=== PATIENT | male | born 1950 | race Caucasian/White ===

== ENCOUNTER → 2021-03-23 07:34 | Outpatient (CLI) | payer MEDICARE, OTHER, SELFPAY ==
--- NOTE | 2021-03-23 07:38 | CDU_ITS ---
Reason For Study: Bruit Rt. Velocities/BP Lt. Velocities/BP Prox CCA 82.6/10.8 cm/sec. Prox CCA 83.9/9 cm/sec. Mid CCA 79.9/9.5 cm/sec. Mid CCA 71.6/12.6 cm/sec. Dist CCA 57.8/13.4 cm/sec. Dist CCA 59.3/11.4 cm/sec. Prox ICA 89.1/23.9 cm/sec. Prox ICA 47/12.6 cm/sec. Mid ICA 68.2/17.3 cm/sec. Mid ICA 61.8/18.8 cm/sec. Dist ICA 82.4/20.2 cm/sec. Dist ICA 56.8/15.1 cm/sec. Rt. ICA/CCA = 1.12. Lt. ICA/CCA = 0.86. Prox ECA 99.5/10.8 cm/sec. Prox ECA 83.9/7.7 cm/sec. Rt. Vert. 47.2/10.5 cm/sec. Lt. Vert. 42.1/11.4 cm/sec. Right Extracranial There is intimal thickening but no significant atherosclerotic plaque noted in the right common carotid artery. There is heterogeneous, irregular atherosclerotic plaque noted in the right internal carotid artery. There is intimal thickening but no significant atherosclerotic plaque noted in the right external carotid artery. Antegrade flow is noted in the right vertebral artery. Left Extracranial There is intimal thickening but no significant atherosclerotic plaque noted in the left common carotid artery. There is homogeneous, smooth atherosclerotic plaque noted in the left internal carotid artery. There is intimal thickening but no significant atherosclerotic plaque noted in the left external carotid artery. Antegrade flow is noted in the left vertebral artery. Procedure Carotid Duplex 34650. This is a Carotid Duplex examination using B-mode, color flow and specral Doppler. Exam performed in department. VL/Carotid Duplex Ultrasound Interpretation Summary Mild irregular plaque at the proximal right internal carotid artery with less t jerez 50% stenosis. Less than 50% stenosis right external carotid artery Mild irregular plaque in the proximal left internal carotid artery with less th an 50% stenosis Less than 50% stenosis left external carotid artery Patent antegrade vertebral arteries bilaterally Ordering Physician: Juwan Diaz Referring Physician: Satnam Almanza Performed By: Iza Ortiz RVT
--- NOTE | 2021-03-23 07:38 | ECHOCS_ITS ---
Reason For Study: MURMUR Procedure This was a 2D Doppler, Color Flow transthoracic echocardiogram. The study was technically difficult. Exam performed in department. Left Ventricle Normal LV size. Left ventricular systolic function is normal. The estimated ejection fraction is 55 %. No regional wall motion abnormalities noted. Right Ventricle Normal RV size. Normal systolic function. Atria Normal left atrium. Normal right atrium. Mitral Valve Mild focal mitral valve calcification, bileaflet. Mild (1+) eccentric mitral valve insufficiency. Tricuspid Valve Normal tricuspid valve. Mild (1+) tricuspid valve insufficiency. Pulmonary artery systolic pressure is 36 mmHg. Aortic Valve Trisinus/trileaflet aortic valve. Mild focal aortic valve calcification. Peak aortic valve gradient 36 mmHg. Mean aortic valve gradient 22 mmHg. Mild aortic stenosis. Mild (1+) aortic valve insufficiency. Pulmonic Valve Normal pulmonic valve. Great Vessels Normal aortic root. The pulmonary artery is normal size. Normal inferior vena cava. Pericardium/Pleural No pericardial effusion. Medication 22 gauge I.V. with prn adaptor inserted into right arm. Diluted definity 3ml given slow IV push to enhance endocardial definition. MMode/2D Measurements & Calculations LVIDd: 5.3 cm IVSd: 1.1 cm LVOT diam: 2.0 cm LVIDs: 3.4 cm LVPWd: 1.1 cm RVDd: 3.6 cm FS: 36.8 % LVOT area: 3.2 cm2 Ao root diam: 3.9 cm LAV(MOD-bp): 51.5 ml LVAd ap4: 39.7 cm2 LAV(MOD-bp) Indexed: 22.4 ml/m2 LVLd ap4: 9.2 cm LAV(MOD-sp2): 52.6 ml EDV(MOD-sp4): 139.5 ml LAV(MOD-sp4): 49.3 ml EDV(sp4-el): 145.1 ml LVAs ap4: 19.8 cm2 LVLs ap4: 7.3 cm ESV(MOD-sp4): 44.2 ml ESV(sp4-el): 45.9 ml EF(MOD-sp4): 68.3 % EF(sp4-el): 68.4 % SV(MOD-sp4): 95.3 ml SV(sp4-el): 99.2 ml LA A4 area: 18.3 cm2 LA dimension(2D): 4.2 cm RA A4 area: 15.4 cm2 Time Measurements MV dec time: 0.41 sec Doppler Measurements & Calculations MV E max samm: 73.7 cm/sec Lat Peak E' Samm: 7.9 cm/sec Med Peak E' Samm: 5.8 cm/sec MV A max samm: 132.9 cm/sec E/E' lat: 9.3 E/E' med: 12.7 MV E/A: 0.55 Ao V2 max: 301.5 cm/sec LV V1 max: 120.9 cm/sec SV(LVOT): 99.4 ml Ao max P.4 mmHg LV V1 max P.8 mmHg Ao V2 mean: 225.0 cm/sec LV V1 mean P.0 mmHg Ao mean P.8 mmHg LV V1 mean: 79.1 cm/sec Ao V2 VTI: 74.0 cm LV V1 VTI: 31.2 cm ARLEY(I,D): 1.3 cm2 ARLEY(V,D): 1.3 cm2 PA V2 max: 92.2 cm/sec TR max samm: 286.1 cm/sec TR max P.7 mmHg ECHO/Echo Complete W/ Contrast Interpretation Summary Normal LV size. Left ventricular systolic function is normal. The estimated ejection fraction is 55 %. Mild focal aortic valve calcification. Mild aortic stenosis. Mild (1+) aortic valve insufficiency. Contrast injection was performed. Ordering Physician: Juwan Diaz Referring Physician: ANIBAL AMBROSE Performed By: Vee Meek RDCS
== END ==
PROVIDERS: PCP Family Medicine; Referring Provider Internal Medicine Cardiovascular Disease; Visit Provider Internal Medicine Cardiovascular Disease
DX: R42 Dizziness and giddiness (principal); R01.1 Cardiac murmur, unspecified
CPT/HCPCS: 93306; 93880; Q9957; A4216; C8929; J3490

== ENCOUNTER 2021-07-27 07:48 | Day surgery (SDC) | payer MEDICARE, OTHER, SELFPAY ==
--- NOTE | 2021-07-25 09:08 | EKG12_ITS ---
Test Reason : ROUTINE Blood Pressure : / mmHG Vent. Rate : 089 BPM Atrial Rate : 089 BPM P-R Int : 170 ms QRS Dur : 114 ms QT Int : 370 ms P-R-T Axes : 052 -85 037 degrees QTc Int : 450 ms Normal sinus rhythm Right bundle branch block Left anterior fascicular block Bifascicular block Abnormal ECG Confirmed by MEREDITH WHITE, MATHEUS ([id number]), medical editor KWAKU STOLL ([id number]) on 07/26/2021 1:02:18 PM Referred By: SANDRO Confirmed By:MATHEUS HARPER MD
[2021-07-27] VITALS (10 sets, daily range): BP systolic 119–167; BP diastolic 61–100; PULSE 65–90; RESP 16–18; TEMP 36.2–36.8; O2SAT 92–96; BMI 34.4
[2021-07-27] MEDS: Lactated Ringers 1,000 ML 30 ML IV (08:55)
[2021-07-27 09:25] LABS: Anion Gap 7 (5-15); BUN 14 mg/dL (7-18); BUN/Creat Ratio 24.9 RATIO (10-20); Calcium,Total 8.4 mg/dL (8.5-10.1); Chloride 103 mmol/L (98-107); Creatinine, Serum 0.56 mg/dL (0.70-1.30); EST Glomerular Filtration Rate 153 mL/min (>60); Est Glom Filt Rate - Afr Amer 185 mL/min (>60); Estimated Creatinine Clearance 74.25 ml/min; Glucose 105 mg/dL (74-106); Potassium 4.1 mmol/L (3.5-5.1); Sodium Level 136 mmol/L (136-145)
[2021-07-27] MEDS: Cefazolin 2 GM in 0.9% Normal Saline 100 ML IV (09:54)
--- NOTE | 2021-07-27 10:10 | PROS_PTH ---
PATIENT: JAMISON MUNGUIA [place] [facility] [place][id number] AGE/SX: 71/M ROOM: RE07/27/[address]: Dr. Randy Harrison MD : [id number] BED: DIS: 07/28/2021 SPEC #: [id number] RECD: 07/27/21 13:19 STATUS: NOEMI GONZALEZ #: [id number] RONAL: 07/27/21 10:[address]: Randy Harrison DEPT: SURGICAL PATHOLOGY RECD BY: Anne-Marie Kemp ENTERED: 07/28/21 07:45 SP TYPE: TURP OTHR DR: Dr. Satnam Almanza, DO Tissues: Prostate, NOS Procedures: Surgery Specimen Level IV HEADER OPERATION: Cysto, TUR prostate, Olymp[employer] PRE-OP DIAGNOSIS: BPH with obstruction TISSUE SUBMITTED: Prostate MICROSCOPIC DIAGNOSIS Prostate tissue, TUR: Benign prostatic hyperplasia, glandular and stromal type. Focal moderate chronic inflammation. SJ:ángel 07/29/2021 MICROSCOPIC DESCRIPTION Slides are reviewed. GROSS DESCRIPTION Received is one container labeled with the patient's name and designated prostate tissue. The specimen consists of multiple irregular fragments of pink-padron, rubbery, soft tissue that in aggregate weigh 13.5 gm and measure in aggregate 5 x 4.5 x 2 cm. Varnish Maker tissue is submitted in ten cassettes. / RAE:ángel 07/28/2021 TC:5 CPT: 00616
[2021-07-27 10:20] LABS: Hematocrit 46.6 % (40-54); Hemoglobin 15.8 g/dL (13.0-16.5); Mean Corp Hgb Conc 33.9 g/dL (32-36); Mean Corpuscular Hgb 31.6 pg (27.0-32.0); Mean Corpuscular Volume 93.2 fL (80-94); Mean Platelet Vol. 12.4 fl (6.2-12.0); POSITIVE COUNT YES; Platelet Count 96 K/mm3 (150-450); RBC Distribution Width CV 12.9 % (11.6-14.6); RBC Distribution Width SD 44.1 fl (35.1-43.9); White Blood Count 7.9 K/mm3 (4.4-11.0)
--- NOTE | 2021-07-27 10:51 | PCM.HP.STD ---
HPI - General HPI Narrative JAMISON MUNGUIA, is a 71 M who presents for BPH with obstruction presents for a TURP [facility] Medical History (Updated 07/20/21 @ 11:17 by Stormy Patel) Anxiety Arthritis Back pain Bladder disease BPH (benign prostatic hyperplasia) Cardiac murmur Cardiology follow-up encounter COVID-19 virus detected (04/09/21) Difficulty swallowing Gastric reflux History of echocardiogram History of edema History of pain when walking Hypertension Non-smoker Nonrheumatic aortic (valve) stenosis Parkinson disease Prostate disease Right bundle branch block (RBBB) Shortness of breath on exertion TIA (transient ischemic attack) Home Medications carbidopa 25 mg-levodopa 100 mg tablet 2 tab PO TID tab 03/09/21 [History Last Taken 07/27/21] Muktabata 2 tab PO/SL QHS 07/20/21 [History Last Taken Unknown] Protandin 1 tab PO/SL DAILY 07/20/21 [History Last Taken Unknown] magnesium 250 mg PO DAILY 07/20/21 [History Last Taken Unknown] ascorbic acid (vitamin C) [Vitamin C] 500 mg PO DAILY 07/21/21 [History Last Taken Unknown] cholecalciferol (vitamin D3) [Vitamin D3] 50 mcg PO DAILY 07/21/21 [History Last Taken Unknown] vitamin K2 100 mcg PO DAILY 07/21/21 [History Last Taken Unknown] ciprofloxacin HCl [Cipro] 500 mg PO BID #6 tab 07/27/21 [Rx Last Taken Unknown] Allergy/AdvReac Type Severity Reaction Status Date / Time No Known Allergies Allergy Unverified 07/27/21 08:31 Family History Other CAD (coronary artery disease) Surgical History (Updated 07/20/21 @ 11:17 by Stormy Patel) History of cataract surgery History of herniorrhaphy Hx of colonoscopy Social History Smoking Status: Never smoker Vital Signs Vital Signs Vital Signs: 07/27/21 08:33 Temperature 98.3 F Temperature Source Temporal Pulse Rate 71 Respiratory Rate 16 Respiratory Pattern Normal Blood Pressure 119/61 Blood Pressure Mean 80 Blood Pressure Source Monitor Blood Pressure Position Semi-Fowlers Blood Pressure Location Left Arm Pulse Ox 95 Oxygen Delivery Method Room Air Weight Weight: 112 kg Body Mass Index (BMI) 34.4 Results Lab / Micro Data Result Diagrams: 07/27/21 10:05 07/27/21 08:45 Labs: Laboratory Results - last 24 hr 07/27/21 08:45: WBC Cancelled, Corrected WBC Cancelled, RBC Cancelled, Hgb Cancelled, Hct Cancelled, MCV Cancelled, MCH Cancelled, MCHC Cancelled, RDW Std Deviation Cancelled, RDW Coeff of Maribel Cancelled, Plt Count Cancelled, MPV Cancelled, Diff Path Review Cancelled 07/27/21 08:45: Sodium 136, Potassium 4.1, Chloride 103, Carbon Dioxide 26.0, Anion Gap 7, BUN 14, Creatinine 0.56 L, Estim Creat Clear Calc 74.25, Est GFR (MDRD) Af Amer 185, Est GFR (MDRD) Non-Af 153, BUN/Creatinine Ratio 24.9 H, Glucose 105, Calcium 8.4 L 07/27/21 10:05: WBC 7.9, RBC 5.00, Hgb 15.8, Hct 46.6, MCV 93.2, MCH 31.6, MCHC 33.9, RDW Std Deviation 44.1 H, RDW Coeff of Maribel 12.9, Plt Count 96 L, MPV 12.4 H
--- NOTE | 2021-07-27 10:51 | PCM.DC ---
Discharge Instructions Diet Discharge Diet: Light diet - advance as tolerated and Soft diet Activity Discharge Activity: Return to Normal Activity and May Not Drive (while taking narcotic pain medications.) Dressing / Incision Call your doctor if you observe: Fever of 101 or Higher Follow Up Care Please Follow Up With: Randy Harrison MD When: Call [phone] for an appointment Test Results: Test results from this visit will be discussed in further detail at your follow-up appointment, if applicable. Discharge Plan Admission Primary Reason for Your Visit: TURP Attending Provider: Randy Harrison Primary Care Provider: Satnam Almanza Discharge Orders/Prescriptions Prescriptions: New ciprofloxacin HCl [Cipro] 500 mg tablet 500 mg PO BID Qty: 6 RF: 0 Continued carbidopa-levodopa 25-100 mg tablet 2 tab PO TID RF: 0 magnesium 250 mg Tablet 250 mg PO DAILY RF: 0 Muktabata 2 tab PO/SL QHS RF: 0 Protandin 1 tab PO/SL DAILY RF: 0 ascorbic acid (vitamin C) [Vitamin C] 500 mg Tablet 500 mg PO DAILY RF: 0 cholecalciferol (vitamin D3) [Vitamin D3] 50 mcg (2,000 unit) Capsule 50 mcg PO DAILY RF: 0 vitamin K2 100 mcg Capsule 100 mcg PO DAILY RF: 0 Discontinued tamsulosin 0.4 mg capsule 0.4 mg PO DAILY RF: 0 aspirin 500 mg tablet 500 mg PO DAILY PRN (Reason: Pain) RF: 0 finasteride 5 mg Tablet 5 mg PO DAILY RF: 0 Referrals / Follow Up: Randy Harrison MD [STAFF PHYSICIAN] - Satnam Almanza DO [Primary Care Provider] - Disposition Disposition (needs filled in before D/C Order can be placed): Home, Self Care
--- NOTE | 2021-07-27 10:52 | PCM.OPRPT ---
Report of Operation Date of Procedure: 07/27/21 Pre-Operative Diagnosis: BPH with obstruction Post-Operative Diagnosis: Same Surgery/Procedure Performed:: Transurethral resection of the prostate Description of Surgical Findings:: In the preoperative setting I discussed with the patient how the surgery would be done with expect afterwards. We discussed how a prostate resection is done and we discussed the risk of the surgery including, bleeding, infection, retrograde ejaculation, changes with ejaculation or intercourse,. We discussed the possibility that the resection of the prostate may not alleviate his urinary symptoms. We discussed the small risk of developing scar tissue along the urethral channel and strictures. We also discussed the chance of the prostate could grow back and he may need further surgery or treatment in the future for prostate problems. Patient was taken back to the operating room, timeout procedure was performed, he was identified and marked and placed on the operating room table. He underwent general anesthesia. He was placed in dorsolithotomy position. Penis and testicles were prepped and draped in usual sterile fashion. Went into the bladder using the visual obturator with a resectoscope. Once inside the bladder identified the right and left ureteral orifice. I then identified the prostate and the anatomy of the prostate. I marked out the area of the sphincter and the verumontanum was identified. I then proceeded with the prostate resection first resected the median lobe. And then resected the right lobe of the prostate. Then to resect the left lobe of the prostate. I then resected the apical tissue of the prostate. This was a complete resection of all obstructive tissue to improve voiding and relieve obstruction. I then made sure that there was no injury to the sphincter or the verumontanum was still intact. At the end of the resection all the chips were Ellik out of the bladder. I then identified the left and right ureteral orifice and these were confirmed to be in good position and effluxing and not injured. The resectoscope was removed, a 22 [place] catheter was placed into the bladder on continuous irrigation. And the urine was fairly light pink color and draining normally. He was taken back to the PACU in good condition. CPT 57408 Surgeon: jolie Type of Anesthesia: General Drains: 22fr [address] way Admit VTE Documentation VTE Present on Admission: No VTE Mechan Device Prophylaxis: SCD's VTE Pharm Prophylaxis ordered?: No
[2021-07-27 11:02] LABS: Scan Indicated on CBC? Y/N YES- FLAGS NOTED
[2021-07-27 11:03] LABS: Differential Comment SCANNED
[2021-07-27] MEDS: Carbidopa/Levodopa 25/100 Tablet PO ×2 (13:43→20:58)
[2021-07-27] MEDS: Acetaminophen 500 MG Tablet PO (17:59)
[2021-07-27] MEDS: Ondansetron 4 MG/2 ML Vial IV (18:00)
[2021-07-28] MEDS: Acetaminophen 500 MG Tablet PO (00:59)
[2021-07-28] MEDS: Ondansetron 4 MG/2 ML Vial IV (01:00)
[2021-07-28 02:57] VITALS: BP 127/76; PULSE 72; RESP 18; TEMP 36.4; O2SAT 94
[2021-07-28] MEDS: Carbidopa/Levodopa 25/100 Tablet PO (05:33)
--- NOTE | 2021-07-28 07:41 | PN.URO_ITS ---
Subjective Subjective DOGN WELL AFTER TURP Objective Data Objective Data Vital Signs: Vital Signs Temp Pulse Resp BP Pulse Ox 97.5 F L 72 18 127/76 H 94 07/28/21 02:57 07/28/21 02:57 07/28/21 02:57 07/28/21 02:57 07/28/21 02:57 Oxygen Flow Rate (L/min) 2 Oxygen Delivery Method Nasal Cannula Weight: 112 kg Body Mass Index (BMI) 34.4 Intake & Output: Intake and Output for Last 24 Hours 07/26/21 07/27/21 07/28/21 23:59 23:59 23:59 Intake Total 1560 / 1560 Output Total 7200 / 7200 3700 / 3700 Balance -5640 / -5640 -3700 / -3700 Lab / Micro Data Result Diagrams: 07/27/21 10:05 07/27/21 08:45 Labs: Laboratory Results - last 24 hr 07/27/21 08:45: WBC Cancelled, Corrected WBC Cancelled, RBC Cancelled, Hgb Ca ncelled, Hct Cancelled, MCV Cancelled, MCH Cancelled, MCHC Cancelled, RDW Std Deviation Cancelled, RDW Coeff of Maribel Cancelled, Plt Count Cancelled, MPV Cancelled, Diff Path Review Cancelled 07/27/21 08:45: Sodium 136, Potassium 4.1, Chloride 103, Carbon Dioxide 26.0, Anion Gap 7, BUN 14, Creatinine 0.56 L, Estim Creat Clear Calc 74.25, Est GFR (MDRD) Af Amer 185, Est GFR (MDRD) Non-Af 153, BUN/Creatinine Ratio 24.9 H, Glucose 105, Calcium 8.4 L 07/27/21 10:05: WBC 7.9, RBC 5.00, Hgb 15.8, Hct 46.6, MCV 93.2, MCH 31.6, MCHC 33.9, RDW Std Deviation 44.1 H, RDW Coeff of Maribel 12.9, Plt Count 96 L, MPV 12.4 H, Differential Comment SCANNED Micro: Microbiology 07/25/21 09:10 Interface Orders SARS-CoV-2 Antigen (Rapid) - Final
--- NOTE | 2021-07-28 08:08 | NURSING ---
Cuenca removed at this time and vicki care given.
[2021-07-28 08:10] VITALS: BP 137/73; PULSE 79; RESP 18; TEMP 36.7; O2SAT 94
== END 2021-07-28 09:25 | disposition home or self-care (01) ==
LOC: SDC 07:50 → AC 07:50 → MS3 10:50
PROVIDERS: Anesthesiology; PCP Family Medicine; Referring Provider Urology; Visit Provider Urology
PROC: (CPT 52601; principal; 2021-07-27 10:00)
DX: N40.1 Benign prostatic hyperplasia with lower urinary tract symptoms (principal); N13.8 Other obstructive and reflux uropathy; R33.8 Other retention of urine; G21.11 Neuroleptic induced parkinsonism; N41.9 Inflammatory disease of prostate, unspecified; Z20.822 Contact with and (suspected) exposure to COVID-19; I35.0 Nonrheumatic aortic (valve) stenosis; I10 Essential (primary) hypertension; M19.90 Unspecified osteoarthritis, unspecified site; K21.9 Gastro-esophageal reflux disease without esophagitis; F41.9 Anxiety disorder, unspecified; Z86.16 Personal history of COVID-19; Z86.73 Personal history of transient ischemic attack (TIA), and cerebral infarction without residual deficits
CPT/HCPCS: 52601; 00914; 80048; 85027; 87426; 88305; 93005; C9803; J7120; J2405

== ENCOUNTER 2021-09-01 17:24 | Observation (INO) | payer MEDICARE, OTHER, SELFPAY ==
[2021-09-01 17:26] VITALS: BP 152/98; PULSE 118; RESP 17; TEMP 36; O2SAT 97; BMI 34.2
[2021-09-01 17:47] LABS: Bacteria 0 SEEN /hpf (None Seen); Mucous, Urine 0 SEEN /hpf (<or=2+); White Blood Cells 0 SEEN /hpf (0-5)
[2021-09-01 17:54] LABS: Color, Urine Amber (Yellow); Glucose, Dipstick Normal (Normal); Ketone-Dipstick 15 mg/dl (Negative); Leukocyte Esterase-Dipstick Negative /ul (Negative); Nitrite-Dipstick Negative (Negative); Occult Blood-Urine 150 /ul (Negative); Protein-Dipstick 500 mg/dl (Negative); Specific Gravity, Urine 1.015 (1.002-1.030); Urine Bilirubin Dipstick Negative (Negative); Urine Clarity Turbid (Clear); Urine Urobilinogen Normal (Normal)
[2021-09-01 18:08] LABS: Red Blood Cells-Urine > 100 SEEN /hpf (0-5)
[2021-09-01 18:09] LABS: Amorphous Sediment 1+; Squamous Epithelial Cells - UA 0-5 SEEN /hpf (0-5)
--- NOTE | 2021-09-01 19:08 | EX.ED.DYSGE1 ---
HPI <TRACEY Kohler - Last Filed: 09/01/21 20:48> History of Present Illness Chief Complaint: Complaint Narrative Narrative: 71-year-old male with history of Parkinson's disease who had a TURP procedure done 5 weeks ago presents to the emergency department with bloody leakage from the penis. Patient states that he self catheterizes himself twice a day, over the last couple days it has been leaking around the catheter which was pale red. Today, patient had a sudden onset of dark fam blood leaking from the penis. Patient did call his urologist who told him to come the emergency department. Patient denies any pain, fever chills nausea or vomiting. PFS <TRACEY Kohler - Last Filed: 09/01/21 20:48> [facility] Medical History (Updated 09/01/21 @ 20:48 by TRACEY Kohler) Anxiety Arthritis Back pain Bladder disease BPH (benign prostatic hyperplasia) Cardiac murmur Cardiology follow-up encounter COVID-19 virus detected (04/09/21) Difficulty swallowing Gastric reflux History of echocardiogram History of edema History of pain when walking Hypertension Non-smoker Nonrheumatic aortic (valve) stenosis Parkinson disease Prostate disease Right bundle branch block (RBBB) Shortness of breath on exertion TIA (transient ischemic attack) Home Medications carbidopa 25 mg-levodopa 100 mg tablet 2 tab PO TID tab 03/09/21 [History Last Taken 07/27/21] Muktabata 2 tab PO/SL QHS 07/20/21 [History Last Taken Unknown] Protandin 1 tab PO/SL DAILY 07/20/21 [History Last Taken Unknown] magnesium 250 mg PO DAILY 07/20/21 [History Last Taken Unknown] ascorbic acid (vitamin C) [Vitamin C] 500 mg PO DAILY 07/21/21 [History Last Taken Unknown] cholecalciferol (vitamin D3) [Vitamin D3] 50 mcg PO DAILY 07/21/21 [History Last Taken Unknown] vitamin K2 100 mcg PO DAILY 07/21/21 [History Last Taken Unknown] ciprofloxacin HCl [Cipro] 500 mg PO BID #6 tab 07/27/21 [Rx Last Taken Unknown] Allergy/AdvReac Type Severity Reaction Status Date / Time No Known Allergies Allergy Unverified 07/27/21 08:31 Family History Other CAD (coronary artery disease) Surgical History (Updated 09/01/21 @ 20:48 by TRACEY Kohler) History of cataract surgery History of herniorrhaphy Hx of colonoscopy Social History Smoking Status: Never smoker ROS <TRACEY Kohler - Last Filed: 09/01/21 20:48> ROS ED ROS Narrative Constitutional: Negative for fever, chills, weight loss or gain, weakness Eyes: Negative for vision loss, vision change, double vision ENT: Negative for any hearing changes, ringing in the ears, dizziness, discharge, pain Nose: Negative for any congestion, runny nose, sinus pain, allergies Throat: Negative for any sore throat hoarseness, voice changes, Cardiovascular: Negative for any chest pain, tightness, palpitations, racing heartbeat Respiratory: Negative for any coughs, sputum production, coughing, hemoptysis, shortness of breath, shortness of breath on exertion, Gastrointestinal: Negative for any abdominal pain, nausea, vomiting, diarrhea, constipation, blood in stool, blood in vomit : Negative for any urinary frequency, dysuria, retention. Positive for urinary incontinence, hematuria Muscle skeletal: Negative for any muscle joint pain, stiffness, myalgias, arthralgias, neck pain, back pain Neurological: Negative for any headache, head injury, dizziness, syncope, numbness or tingling Skin: Negative for any rashes, lumps, itching, abrasions, lacerations Psychiatric: Negative for any depression, anxiety, stress, suicidal ideation, homicidal ideation Hematologic: Negative for any easy bruising, excessive bruising, easy bleeding Allergies: Negative for any eczema, hives, rash EXAM <TRACEY Kohler - Last Filed: 09/01/21 20:48> Physical Exam Const Vital Signs: 09/01/21 17:26 09/01/21 20:02 Temperature 96.8 F L Temperature Source Temporal Pulse Rate 118 H Respiratory Rate 17 18 Blood Pressure 152/98 H Blood Pressure Mean 116 Pulse Ox 97 Oxygen Delivery Method Room Air Positive well nourished and well developed General Appearance ED: well developed Eyes PERRL and EOMs intact bilaterally Neck no lymphadenopathy and supple Chest Wall inspection of chest normal Resp normal respiratory effort and clear to auscultation bilaterally Cardio regular rate and regular rhythm GI normal to inspection, nondistended, normoactive bowel sounds Narrative: Patient does have blood leaking from the penile meatus, his entire legs, feet are splatter with blood from incontinence and hematuria. Back/Spine no CVA tenderness Extremity normal to inspection Neuro oriented x3 Neuro Narrative: Patient does have a consistent tremor secondary to Parkinson's disease Sensorium / Orientation: alert Psych mental status grossly normal Skin no rashes or lesions noted <Dr. Shane Doan MD - Last Filed: 09/01/21 19:27> Physical Exam Const Vital Signs: 09/01/21 17:26 09/01/21 20:02 Temperature 96.8 F L Temperature Source Temporal Pulse Rate 118 H Respiratory Rate 17 18 Blood Pressure 152/98 H Blood Pressure Mean 116 Pulse Ox 97 Oxygen Delivery Method Room Air MDM <TRACEY Kohler - Last Filed: 09/01/21 20:48> [facility] Narrative Medical decision making narrative: Patient appears well, patient is in no distress, patient's vital signs are stable. Patient presents the emergency department with gross hematuria 5 weeks post TURP procedure. Patient was sent in by his urologist. Patient's laboratory studies were unremarkable, patient does have history of low platelets however today it was hemolyzed. Patient's urinalysis was negative for infection however did show gross hematuria. Patient had a 22 Malay three-way placed into the urethra with 3000 cc to saline boluses to irrigate his bladder. Patient continued to have gross red blood as well as continuous clots. Patient's vital signs remained stable. At this time, we did contact the patient urologist who will admit the patient. Patient stable for admission. Lab Data Labs: Laboratory Results - last 24 hr 09/01/21 09/01/21 09/01/21 17:41 18:00 18:00 WBC 8.6 RBC 5.04 Hgb 15.8 Hct 46.8 MCV 92.9 MCH 31.3 MCHC 33.8 RDW Std Deviation 43.2 RDW Coeff of Maribel 12.6 Plt Count TNP MPV 13.9 H Immature Gran % (Auto) 0.200 Neut % (Auto) 69.2 Lymph % (Auto) 18.6 L [place] % (Auto) 10.1 H Eos % (Auto) 1.3 Baso % (Auto) 0.6 Absolute Neuts (auto) 5.9 Absolute Lymphs (auto) 1.60 Nucleated RBC % 0 Differential Comment Platelet Estimate SLT DEC Sodium 139 Potassium 4.6 Chloride 108 H Carbon Dioxide 29.0 Anion Gap 2 L BUN 24 H Creatinine 0.82 Estim Creat Clear Calc 90.55 Est GFR (MDRD) Af Amer 120 Est GFR (MDRD) Non-Af 99 BUN/Creatinine Ratio 29.4 H Glucose 127 H Calcium 8.8 Urine Color [place] Urine Clarity Turbid Urine pH 7.0 Ur Specific [place] 1.015 Urine Protein 500 H Urine Glucose (UA) Normal Urine Ketones 15 H Urine Occult Blood 150 H Urine Nitrite Negative Urine Bilirubin Negative Urine Urobilinogen Normal Ur Leukocyte Esterase Negative Urine RBC > 100 SEEN Urine WBC 0 SEEN Ur Squamous Epith Cells 0-5 SEEN Amorphous Sediment 1+ Urine Bacteria 0 SEEN Urine Mucus 0 SEEN <Dr. Shane Doan MD - Last Filed: 09/01/21 19:27> [facility] MDM Narrative Medical decision making narrative: 71-year-old male had a transurethral prostatectomy done [address] Dick Harrison of urology. Today started having gross hematuria. He is on aspirin but no other blood thinners. Well-appearing 71-year-old male no acute distress. Vital signs are stable he is afebrile. H EENT exam unremarkable. Neck nontender. Lungs clear to auscultation bilaterally. Abdomen soft nontender. Normal bowel sounds. Bladder is nondistended. He does have a Cuenca in place. Moving all 4 extremities. 22 Malay Cuenca be placed. Bladder was irrigated. The labs are pending. Lab Data Attestation: I reviewed the patient's lab results. Lab results narrative: CBC shows a white count 8. H&H 15 and 46. Platelet count is low at 52. UA shows greater than 100 red cells. No white cells. No bacteria. No nitrites. Labs: Laboratory Results - last 24 hr 09/01/21 09/01/21 09/01/21 17:41 18:00 18:00 WBC 8.6 RBC 5.04 Hgb 15.8 Hct 46.8 MCV 92.9 MCH 31.3 MCHC 33.8 RDW Std Deviation 43.2 RDW Coeff of Maribel 12.6 Plt Count TNP MPV 13.9 H Immature Gran % (Auto) 0.200 Neut % (Auto) 69.2 Lymph % (Auto) 18.6 L [place] % (Auto) 10.1 H Eos % (Auto) 1.3 Baso % (Auto) 0.6 Absolute Neuts (auto) 5.9 Absolute Lymphs (auto) 1.60 Nucleated RBC % 0 Differential Comment Platelet Estimate SLT DEC Sodium 139 Potassium 4.6 Chloride 108 H Carbon Dioxide 29.0 Anion Gap 2 L BUN 24 H Creatinine 0.82 Estim Creat Clear Calc 90.55 Est GFR (MDRD) Af Amer 120 Est GFR (MDRD) Non-Af 99 BUN/Creatinine Ratio 29.4 H Glucose 127 H Calcium 8.8 Urine Color [place] Urine Clarity Turbid Urine pH 7.0 Ur Specific [place] 1.015 Urine Protein 500 H Urine Glucose (UA) Normal Urine Ketones 15 H Urine Occult Blood 150 H Urine Nitrite Negative Urine Bilirubin Negative Urine Urobilinogen Normal Ur Leukocyte Esterase Negative Urine RBC > 100 SEEN Urine WBC 0 SEEN Ur Squamous Epith Cells 0-5 SEEN Amorphous Sediment 1+ Urine Bacteria 0 SEEN Urine Mucus 0 SEEN Discharge Plan Triage Chief Complaint: Complaint ED Midlevel Provider: Marcos Josue ED Provider: Shane Doan Dx/Rx/DC Orders Clinical Impression: Hematuria, Hx of transurethral resection of prostate Prescriptions: No Action carbidopa-levodopa 25-100 mg tablet 2 tab PO TID RF: 0 magnesium 250 mg Tablet 250 mg PO DAILY RF: 0 Muktabata 2 tab PO/SL QHS RF: 0 Protandin 1 tab PO/SL DAILY RF: 0 ascorbic acid (vitamin C) [Vitamin C] 500 mg Tablet 500 mg PO DAILY RF: 0 cholecalciferol (vitamin D3) [Vitamin D3] 50 mcg (2,000 unit) Capsule 50 mcg PO DAILY RF: 0 vitamin K2 100 mcg Capsule 100 mcg PO DAILY RF: 0 ciprofloxacin HCl [Cipro] 500 mg tablet 500 mg PO BID Qty: 6 RF: 0 Primary Care Provider: Satnam Almanza Referrals: Satnam Almanza DO [Primary Care Provider] - Disposition Disposition: Acute Care [facility]
[2021-09-01 19:12] LABS: Absolute Neutrophil Count 5.9 X10^3/uL (2.0-7.7); Basophil# 0.05 X10^3/uL; Basophil% 0.6 % (0-1); Eosinophil# 0.11 X10^3/uL; Eosinophils% 1.3 % (0-5); Hematocrit 46.8 % (40-54); Hemoglobin 15.8 g/dL (13.0-16.5); Lymphocyte % 18.6 % (19-41); Mean Corp Hgb Conc 33.8 g/dL (32-36); Mean Corpuscular Hgb 31.3 pg (27.0-32.0); Mean Corpuscular Volume 92.9 fL (80-94); Mean Platelet Vol. 13.9 fl (6.2-12.0); Monocyte# 0.87 X10^3/uL; Monocyte% 10.1 % (0-10); NRBC Flagged by Analyzer 0 % (0-5); Neutrophil # 5.93 X10^3/uL (2.7-7.7); Neutrophil % 69.2 % (47-70); POSITIVE COUNT YES; POSITIVE MORPHOLOGY YES; RBC Distribution Width CV 12.6 % (11.6-14.6); RBC Distribution Width SD 43.2 fl (35.1-43.9); Red Blood Count 5.04 M/mm3 (4.6-6.2); White Blood Count 8.6 K/mm3 (4.4-11.0)
[2021-09-01 19:14] LABS: Differential Indicated SCAN CRITERIA MET
[2021-09-01 19:31] LABS: Anion Gap 2 (5-15); BUN 24 mg/dL (7-18); BUN/Creat Ratio 29.4 RATIO (10-20); Calcium,Total 8.8 mg/dL (8.5-10.1); Chloride 108 mmol/L (98-107); Creatinine, Serum 0.82 mg/dL (0.70-1.30); EST Glomerular Filtration Rate 99 mL/min (>60); Est Glom Filt Rate - Afr Amer 120 mL/min (>60); Estimated Creatinine Clearance 90.55 ml/min; Glucose 127 mg/dL (74-106); Potassium 4.6 mmol/L (3.5-5.1); Sodium Level 139 mmol/L (136-145)
[2021-09-01 20:00] LABS: Platelet Estimate SLT DEC (ADEQ)
[2021-09-01 20:02] VITALS: RESP 18
--- NOTE | 2021-09-01 20:38 | ED.RN ---
Cuenca catheter continues to stop draining, manual irrigation needed several times and each time large clots have been expelled. Dr. Doan aware.
[2021-09-01 21:00] VITALS: BP 132/90; PULSE 84; RESP 18; TEMP 37.3; O2SAT 96
[2021-09-01 21:44] VITALS: BMI 34.4
[2021-09-01 22:14] VITALS: BP 137/81; PULSE 88; RESP 16; TEMP 36.8; O2SAT 96
[2021-09-01] MEDS: 0.9% Normal Saline 1,000 ML 50 ML IV (22:51)
[2021-09-01] MEDS: Ciprofloxacin 400 MG/200 ML BAG 200 MG IV (23:00)
[2021-09-01] MEDS: Acetaminophen 500 MG Tablet PO (23:03)
[2021-09-02 02:02] VITALS: BP 122/77; PULSE 82; RESP 18; TEMP 36.7; O2SAT 95
[2021-09-02 03:57] VITALS: BP 118/75; PULSE 68; RESP 18; TEMP 36.7; O2SAT 95
[2021-09-02] MEDS: Carbidopa/Levodopa 25/100 Tablet PO ×3 (05:22→15:59)
--- NOTE | 2021-09-02 07:58 | HP.PCM_ITS ---
HPI - General General Date of Admission: 09/01/21 HPI Narrative JAMISON MUNGUIA, is a 71 M who presents after transurethral resection of prostate came in with bleeding organ to put a three-way catheter to stop the bleeding. [facility] Medical History Anxiety Arthritis Back pain Bladder disease BPH (benign prostatic hyperplasia) Cardiac murmur Cardiology follow-up encounter Chronic pain COVID-19 virus detected (04/09/21) Difficulty swallowing Gastric reflux History of echocardiogram History of edema History of pain when walking Hypertension Injury of head and neck Non-smoker Nonrheumatic aortic (valve) stenosis Parkinson disease Prostate disease Right bundle branch block (RBBB) Shortness of breath on exertion TIA (transient ischemic attack) Home Medications carbidopa 25 mg-levodopa 100 mg tablet 2 tab PO TID tab 03/09/21 [History Last Taken 07/27/21] Muktabata 2 tab PO/SL QHS 07/20/21 [History Last Taken Unknown] Protandin 1 tab PO/SL DAILY 07/20/21 [History Last Taken Unknown] magnesium 250 mg PO DAILY 07/20/21 [History Last Taken Unknown] ascorbic acid (vitamin C) [Vitamin C] 500 mg PO DAILY 07/21/21 [History Last Taken Unknown] cholecalciferol (vitamin D3) [Vitamin D3] 50 mcg PO DAILY 07/21/21 [History Last Taken Unknown] vitamin K2 100 mcg PO DAILY 07/21/21 [History Last Taken Unknown] ciprofloxacin HCl [Cipro] 500 mg PO BID #10 tab 09/02/21 [Rx Last Taken Unknown] Allergy/AdvReac Type Severity Reaction Status Date / Time No Known Allergies Allergy Unverified 07/27/21 08:31 Family History Other CAD (coronary artery disease) Surgical History History of cataract surgery History of herniorrhaphy Hx of colonoscopy Social History Smoking Status: Never smoker Vital Signs Vital Signs Vital Signs: 09/01/21 17:26 09/01/21 20:02 09/01/21 21:00 Temperature 96.8 F L 99.2 F H Temperature Source Temporal Oral Pulse Rate 118 H 84 Respiratory Rate 17 18 18 Respiratory Effort Blood Pressure 152/98 H 132/90 H Blood Pressure Mean 116 104 Blood Pressure Source Blood Pressure Position Blood Pressure Location Pulse Ox 97 96 Oxygen Delivery Method Room Air Room Air 09/01/21 21:44 09/01/21 22:14 09/02/21 02:02 Temperature 98.3 F 98.1 F Temperature Source Oral Oral Pulse Rate 88 82 Respiratory Rate 16 18 Respiratory Effort Normal Non-Labored Blood Pressure 137/81 H 122/77 H Blood Pressure Mean 99 92 Blood Pressure Source Monitor Monitor Blood Pressure Position Semi-Fowlers Semi-Fowlers Blood Pressure Location Right Arm Right Arm Pulse Ox 96 95 Oxygen Delivery Method Room Air Room Air Room Air 09/02/21 03:57 Temperature 98.1 F Temperature Source Oral Pulse Rate 68 Respiratory Rate 18 Respiratory Effort Blood Pressure 118/75 Blood Pressure Mean 89 Blood Pressure Source Monitor Blood Pressure Position Semi-Fowlers Blood Pressure Location Left Arm Pulse Ox 95 Oxygen Delivery Method Room Air Weight Weight: 111.8 kg Body Mass Index (BMI) 34.4 Results Lab / Micro Data Result Diagrams: 09/01/21 18:00 09/01/21 18:00 Labs: Laboratory Results - last 24 hr 09/01/21 17:41: Urine Color [place], Urine Clarity Turbid, Urine pH 7.0, Ur Specific [place] 1.015, Urine Protein 500 H, Urine Glucose (UA) Normal, Urine Ketones 15 H, Urine Occult Blood 150 H, Urine Nitrite Negative, Urine Bilirubin Negative, Urine Urobilinogen Normal, Ur Leukocyte Esterase Negative, Urine RBC > 100 SEEN, Urine WBC 0 SEEN, Ur Squamous Epith Cells 0-5 SEEN, Amorphous Sediment 1+, Urine Bacteria 0 SEEN, Urine Mucus 0 SEEN 09/01/21 18:00: WBC 8.6, RBC 5.04, Hgb 15.8, Hct 46.8, MCV 92.9, MCH 31.3, MCHC 33.8, RDW Std Deviation 43.2, RDW Coeff of Maribel 12.6, Plt Count TNP, MPV 13.9 H, Immature Gran % (Auto) 0.200, Neut % (Auto) 69.2, Lymph % (Auto) 18.6 L, [place] % (Auto) 10.1 H, Eos % (Auto) 1.3, Baso % (Auto) 0.6, Absolute Neuts (auto) 5.9, Absolute Lymphs (auto) 1.60, Nucleated RBC % 0, Differential Comment , Platelet Estimate SLT 09/01/21 18:00: Sodium 139, Potassium 4.6, Chloride 108 H, Carbon Dioxide 29.0, Anion Gap 2 L, BUN 24 H, Creatinine 0.82, Estim Creat Clear Calc 90.55, Est GFR (MDRD) Af Amer 120, Est GFR (MDRD) Non-Af 99, BUN/Creatinine Ratio 29.4 H, Glucose 127 H, Calcium 8.8
--- NOTE | 2021-09-02 07:59 | PCM.DC ---
Discharge Instructions Diet Discharge Diet: No restrictions Activity Discharge Activity: Return to Normal Activity and May Not Drive (while taking narcotic pain medications.) Dressing / Incision Call your doctor if you observe: Fever of 101 or Higher Follow Up Care Please Follow Up With: Randy Harrison MD When: Call [phone] for an appointment Test Results: Test results from this visit will be discussed in further detail at your follow-up appointment, if applicable. Discharge Plan Admission Admit Date/Time: 09/01/21 21:44 Primary Reason for Your Visit: bleeding from prostate Attending Provider: Randy Harrison Primary Care Provider: Satnam Almanza Discharge Orders/Prescriptions Prescriptions: New ciprofloxacin HCl [Cipro] 500 mg tablet 500 mg PO BID Qty: 10 RF: 0 Continued carbidopa-levodopa 25-100 mg tablet 2 tab PO TID RF: 0 magnesium 250 mg Tablet 250 mg PO DAILY RF: 0 Muktabata 2 tab PO/SL QHS RF: 0 Protandin 1 tab PO/SL DAILY RF: 0 ascorbic acid (vitamin C) [Vitamin C] 500 mg Tablet 500 mg PO DAILY RF: 0 cholecalciferol (vitamin D3) [Vitamin D3] 50 mcg (2,000 unit) Capsule 50 mcg PO DAILY RF: 0 vitamin K2 100 mcg Capsule 100 mcg PO DAILY RF: 0 Discontinued aspirin 325 mg Tablet 325 mg PO DAILY PRN (Reason: Pain) RF: 0 Referrals / Follow Up: Randy Harrison MD [STAFF PHYSICIAN] - Satnam Almanza DO [Primary Care Provider] -
[2021-09-02 08:31] VITALS: BP 137/90; PULSE 84; RESP 17; TEMP 36.6; O2SAT 96
[2021-09-02] MEDS: Ciprofloxacin 500 MG Tablet PO ×2 (10:27→21:17)
[2021-09-02] MEDS: Acetaminophen 500 MG Tablet PO ×2 (10:32→21:18)
[2021-09-02 14:00] VITALS: BP 120/80; PULSE 70; RESP 17; TEMP 36.6; O2SAT 93
--- NOTE | 2021-09-02 14:31 | CASEMGMT ---
TOMASA CM in to discuss MORA form with patient. RN CM explained MORA form, patient voiced understanding. Pt signed form and filed in chart. Pt provided with a copy of signed MORA form. Patient had no further questions or concerns at this time.
[2021-09-02] MEDS: 0.9% Normal Saline 1,000 ML 50 ML IV (15:59)
[2021-09-02 21:16] VITALS: BP 142/83; PULSE 72; RESP 18; TEMP 36.7; O2SAT 93
[2021-09-02] MEDS: 0.9% Saline Lock 10 ML Syringe IV (22:07)
[2021-09-03 02:42] VITALS: BP 153/91; PULSE 70; RESP 18; TEMP 36.6; O2SAT 96
[2021-09-03] MEDS: Carbidopa/Levodopa 25/100 Tablet PO (05:23)
[2021-09-03 09:10] VITALS: BP 130/67; PULSE 79; RESP 16; TEMP 37.4; O2SAT 92
[2021-09-03] MEDS: Ciprofloxacin 500 MG Tablet PO (09:27)
--- NOTE | 2021-09-03 09:42 | PCM.DC.SUM ---
Providers Date of Admission: 09/01/21 Primary Care Physician: Dr. Satnam Almanza DO Reason For Visit: HEMATURIA Medications at Discharge Home Medications carbidopa 25 mg-levodopa 100 mg tablet 2 tab PO TID tab 03/09/21 Muktabata 2 tab PO/SL QHS 07/20/21 Protandin 1 tab PO/SL DAILY 07/20/21 magnesium 250 mg PO DAILY 07/20/21 ascorbic acid (vitamin C) [Vitamin C] 500 mg PO DAILY 07/21/21 cholecalciferol (vitamin D3) [Vitamin D3] 50 mcg PO DAILY 07/21/21 vitamin K2 100 mcg PO DAILY 07/21/21 ciprofloxacin HCl [Cipro] 500 mg PO BID #10 tab 09/02/21 Hospital Course Summary of Care Provided Hospital Course: pt admit for bleeding s/p turp, bleeding stopped with irriagation, home today Weight / BMI Weight Weight: 111.8 kg Body Mass Index (BMI) 34.4 ABG / Lab / Microbiology Data Result Diagrams: 09/01/21 18:00 09/01/21 18:00 Laboratory: Laboratory Results - last 24 hr 09/01/21 17:41: Urine Color [place], Urine Clarity Turbid, Urine pH 7.0, Ur Specific [place] 1.015, Urine Protein 500 H, Urine Glucose (UA) Normal, Urine Ketones 15 H, Urine Occult Blood 150 H, Urine Nitrite Negative, Urine Bilirubin Negative, Urine Urobilinogen Normal, Ur Leukocyte Esterase Negative, Urine RBC > 100 SEEN, Urine WBC 0 SEEN, Ur Squamous Epith Cells 0-5 SEEN, Amorphous Sediment 1+, Urine Bacteria 0 SEEN, Urine Mucus 0 SEEN Microbiology: Microbiology 09/01/21 17:41 Urine Catheter - Cuenca Urine Culture - Final Staphylococcus hominis hominis D/C Instructions Discharge Diet: No restrictions Call your doctor if you observe: Fever of 101 or Higher Please Follow Up With: Randy Harrison MD When: Call [phone] for an appointment Meaningful Use Info Meaningful Use Diagnoses (Choose all that apply): None applicable Discharge Plan Admission Admit Date/Time: 09/01/21 21:44 Primary Reason for Your Visit: bleeding from prostate Attending Provider: Randy Harrison Primary Care Provider: Satnam Almanza Discharge Orders/Prescriptions Prescriptions: New ciprofloxacin HCl [Cipro] 500 mg tablet 500 mg PO BID Qty: 10 RF: 0 Continued carbidopa-levodopa 25-100 mg tablet 2 tab PO TID RF: 0 magnesium 250 mg Tablet 250 mg PO DAILY RF: 0 Muktabata 2 tab PO/SL QHS RF: 0 Protandin 1 tab PO/SL DAILY RF: 0 ascorbic acid (vitamin C) [Vitamin C] 500 mg Tablet 500 mg PO DAILY RF: 0 cholecalciferol (vitamin D3) [Vitamin D3] 50 mcg (2,000 unit) Capsule 50 mcg PO DAILY RF: 0 vitamin K2 100 mcg Capsule 100 mcg PO DAILY RF: 0 Discontinued aspirin 325 mg Tablet 325 mg PO DAILY PRN (Reason: Pain) RF: 0 Referrals / Follow Up: Randy Harrison MD [STAFF PHYSICIAN] - Satnam Almanza DO [Primary Care Provider] - Disposition Discharge Orders: Discharge Patient (Routine); Ordered 09/03/21 Ordered By: Dr. Randy Harrison
== END 2021-09-03 11:30 | disposition home or self-care (01) ==
LOC: ED 20:48 → MS3 22:35
PROVIDERS: Admitting Provider Urology; Emergency Provider Emergency Medicine; PCP Family Medicine; Visit Provider Urology
DX: R31.9 Hematuria, unspecified (principal); G20 Parkinson's disease; I10 Essential (primary) hypertension; Z79.82 Long term (current) use of aspirin; Z79.899 Other long term (current) drug therapy; M19.90 Unspecified osteoarthritis, unspecified site; Z86.16 Personal history of COVID-19; N40.1 Benign prostatic hyperplasia with lower urinary tract symptoms
CPT/HCPCS: 51702; 80048; 81001; 85025; 87077; 87086; 87088; 87186; 96365; 99218; 99285; J7030; A4216; G0378; J0744

== ENCOUNTER 2022-04-07 15:19 | Emergency (ER) | payer MEDICARE, OTHER, SELFPAY ==
[2022-04-07 15:21] VITALS: BP 133/90; PULSE 90; RESP 18; TEMP 36.8; O2SAT 97; BMI 32.5
--- NOTE | 2022-04-07 15:34 | EDS_ITS ---
HPI History of Present Illness Chief Complaint: Lower Extremity Injury Detail of Chief Complaint: DVT Informant: patient Narrative Narrative: Patient sent over from vascular ultrasound with evidence of a DVT. He had a right knee replacement on March [address] Luis Alberto Parker. He ordered an outpatient venous ultrasound to be performed today. This reveals evidence of acute DVT in the right common femoral vein and the right femoral vein. There is note that they report was called to Dr. Luis Alberto Praker's office and the patient was sent to the emergency room. He denies having chest pain or shortness of breath. He states his leg has been slightly swollen since his surgery and he does not feel that it has recently worsened. [facility] Medical History Anxiety Arthritis Back pain Bladder disease BPH (benign prostatic hyperplasia) Cardiac murmur Cardiology follow-up encounter Chronic pain COVID-19 virus detected (04/09/21) Difficulty swallowing Gastric reflux History of echocardiogram History of edema History of pain when walking Hypertension Injury of head and neck Non-smoker Nonrheumatic aortic (valve) stenosis Parkinson disease Prostate disease Right bundle branch block (RBBB) Shortness of breath on exertion TIA (transient ischemic attack) Home Medications carbidopa 25 mg-levodopa 100 mg tablet 2 tab PO TID Check with primary doctor 03/09/21 [History Last Taken 07/27/21] Muktabata 2 tab PO/SL QHS blood pressure 07/20/21 [History Last Taken Unknown] Protandin 1 tab PO/SL DAILY Check with primary doctor 07/20/21 [History Last Taken Unknown] magnesium 250 mg tablet 250 mg PO DAILY Check with primary doctor 07/20/21 [History Last Taken Unknown] ascorbic acid (vitamin C) 500 mg tablet (Vitamin C) 500 mg PO DAILY Check with primary doctor 07/21/21 [History Last Taken Unknown] cholecalciferol (vitamin D3) 50 mcg (2,000 unit) capsule (Vitamin D3) 50 mcg PO DAILY Check with primary doctor 07/21/21 [History Last Taken Unknown] vitamin K2 100 mcg capsule 100 mcg PO DAILY Check with primary doctor 07/21/21 [History Last Taken Unknown] ciprofloxacin HCl 500 mg tablet (Cipro) 500 mg PO BID #10 tabs 09/02/21 [Rx Last Taken Unknown] apixaban 5 mg (74 tabs) tablets in a dose pack (Eliquis DVT-PE Treat 30D Start) 5 mg PO BID #74 tabs 04/07/22 [Rx Last Taken Unknown] Allergy/AdvReac Type Severity Reaction Status Date / Time No Known Allergies Allergy Verified 04/07/22 15:20 Family History Other CAD (coronary artery disease) Surgical History History of cataract surgery History of herniorrhaphy Hx of colonoscopy Social History Smoking Status: Never smoker ROS ROS ED Constitutional Constitutional ED: Denies chills or fever(s) Eyes Eyes: Denies change in vision or discharge from eye(s) ENT ENT ED: Denies discharge from eye(s), rhinorrhea or sore throat Cardiovascular Cardiovascular: Denies chest pain or palpitations Respiratory/Chest Respiratory/Chest: Denies cough or dyspnea Gastrointestinal Gastrointestinal: Denies abdominal pain, diarrhea, nausea or vomiting Genitourinary Genitourinary ED: Denies difficulty urinating or dysuria Musculoskeletal Musculoskeletal: Reports extremity pain; Denies back pain Integumentary Denies Abrasions or rash Neurologic Neurologic: Denies headache(s) or weakness Allergic/Immunologic Allergic/Immunologic ED: Denies lip swelling or urticaria EXAM Physical Exam Const Vital Signs: 04/07/22 15:21 Temperature 98.3 F Temperature Source Temporal Pulse Rate 90 Respiratory Rate 18 Blood Pressure 133/90 H Blood Pressure Mean 104 Pulse Ox 97 Oxygen Delivery Method Room Air Positive well nourished and well developed General Appearance ED: well developed HEENT Reports normocephalic and head/scalp atraumatic Eyes PERRL and EOMs intact bilaterally Neck supple Chest Wall inspection of chest normal and palpation of chest normal Resp normal respiratory effort and clear to auscultation bilaterally Cardio regular rate and regular rhythm GI normal to inspection, nondistended, normoactive bowel sounds Palpation: soft Extremity Extremity Narrative: [place] intact over the anterior right knee. Mild right leg edema. Compression stockings in place up to mid thigh. Neuro oriented x3 Neuro Narrative: Tremor consistent with Parkinson's disease noted. Sensorium / Orientation: alert Psych mental status grossly normal Skin no rashes or lesions noted MDM [facility] Treatment and Re-Evaluation Narrative: Patient already had outpatient ultrasound performed that reveals DVT. He will be started on Eliquis. I did review his most recent lab work and he has normal renal function. Prescription card for free 30-day trial offer is given. Corina reveles knows to follow-up with his primary care physician for subsequent prescriptions. Return instructions given. Discharge Plan Triage Chief Complaint: Lower Extremity Injury ED Provider: Bhargavi Mooney Dx/Rx/DC Orders Clinical Impression: DVT (deep venous thrombosis) Instructions: ED Deep Vein Thrombosis (DVT) Prescriptions: New Eliquis DVT-PE Treat 30D Start 5 mg (74 tabs) tablets,dose pack 5 mg PO BID Qty: 74 0RF No Action carbidopa-levodopa 25-100 mg tablet 2 tab PO TID magnesium 250 mg Tablet 250 mg PO DAILY Muktabata 2 tab PO/SL QHS Protandin 1 tab PO/SL DAILY ascorbic acid (vitamin C) [Vitamin C] 500 mg Tablet 500 mg PO DAILY cholecalciferol (vitamin D3) [Vitamin D3] 50 mcg (2,000 unit) Capsule 50 mcg PO DAILY vitamin K2 100 mcg Capsule 100 mcg PO DAILY ciprofloxacin HCl [Cipro] 500 mg tablet 500 mg PO BID Qty: 10 0RF Primary Care Provider: Satnam Almanza Referrals: Satnam Almazna DO [Primary Care Provider] - 1-2 Weeks Disposition Disposition: Home, Self Care
[2022-04-07] MEDS: APIXABAN 5 MG TABLET 10 MG PO (15:48)
== END 2022-04-07 16:02 | disposition home or self-care (01) ==
LOC: ED 15:44
PROVIDERS: Emergency Provider Emergency Medicine; PCP Family Medicine; Visit Provider Emergency Medicine
DX: I82.411 Acute embolism and thrombosis of right femoral vein (principal); G20 Parkinson's disease; Z96.651 Presence of right artificial knee joint; I10 Essential (primary) hypertension; N40.0 Benign prostatic hyperplasia without lower urinary tract symptoms; G89.29 Other chronic pain; K21.9 Gastro-esophageal reflux disease without esophagitis; Z79.01 Long term (current) use of anticoagulants; Z79.899 Other long term (current) drug therapy; Z86.73 Personal history of transient ischemic attack (TIA), and cerebral infarction without residual deficits
CPT/HCPCS: 93971; 99281; 99283

== ENCOUNTER → 2022-04-07 | Outpatient (CLI) | payer MEDICARE, OTHER, SELFPAY ==
--- NOTE | 2022-04-07 14:33 | VDLE_ITS ---
Reason For Study: LEG PAIN RIGHT LEFT GSV is normal. CFV is compressible, spontaneous, phasic, Acute deep vein thrombosis is noted in the competent, and demonstrates normal right common femoral vein. augmentation. Acute deep vein thrombosis is noted in the right femoral vein. POP V is compressible, spontaneous, phasic, competent and demonstrates normal augmentation. T/P Trunk is compressible. PTV is compressible. RT PerV is compressible. Acute mobile thrombus noted in the CFV and proximal FV. Procedure This is a venous duplex using B-mode, color flow and spectral Doppler. Exam performed in department. The exam was diagnostic. A preliminary report was called and/or faxed to Dr. Luis Alberto Parker's offce. VL/Venous Duplex US, Unilateral Interpretation Summary Acute deep vein thrombosis is noted in the right common femoral vein. Acute dianna p vein thrombosis is noted in the right femoral vein. The remainder of the right lower extremity dianna p venous system is patent and compressible. The right great saphenous vein appears patent and comp ressible segmentally. Ordering Physician: Luis Alberto Parker Referring Physician: Luis Alberto Parker M.D. Performed By: Tomas Cruz RVT
== END | disposition home or self-care (01) ==
LOC: CVS 14:32
PROVIDERS: PCP Family Medicine; Referring Provider Orthopaedic Surgery; Visit Provider Orthopaedic Surgery
DX: M79.661 Pain in right lower leg (principal)
CPT/HCPCS: 93971

== ENCOUNTER → 2022-07-06 | Outpatient (CLI) | payer MEDICARE, OTHER, SELFPAY ==
--- NOTE | 2022-07-06 12:54 | VDLE_ITS ---
Reason For Study: DVT RIGHT GSV is normal. CFV is compressible, spontaneous, phasic, competent and demonstrates normal augmentation. FV is compressible, spontaneous, phasic, competent and demonstrates normal augmentation. PTV is compressible. RT PerV is compressible. CFV and FV are now compressible. Improvement from previous study done 04/07/22. POP V and T/P Trunk are partially compressible. New finding from previous study. Procedure This is a venous duplex using B-mode, color flow and spectral Doppler. Exam performed in department. The exam was abbreviated due to the COVID 19 protocol. The exam was diagnostic. A preliminary report was called and/or faxed to Dr. Almanza. VL/Venous Duplex US, Unilateral Interpretation Summary Deep veins of the right lower extremity are patent and compressible segmentally . The previously noted acute deep vein thrombosis in the right common femoral vein and femoral v ein on 04/07/22 has resolved. Chronic venous changes are noted in the right popliteal vein and tibi o-peroneal trunk, suggesting a history of previous thrombosis. Valvular competence appears intact within the proximal deep venous system on the right . The right great saphenous vein appears patent and compressible segmentally. Ordering Physician: Satnam Almanza Referring Physician: Satnam Almanza Performed By: Agapito Clemons RVT
== END | disposition home or self-care (01) ==
LOC: CVS 12:52
PROVIDERS: PCP Family Medicine; Referring Provider Family Medicine; Visit Provider Family Medicine
DX: Z86.718 Personal history of other venous thrombosis and embolism (principal)
CPT/HCPCS: 93971

== ENCOUNTER → 2022-08-15 | Outpatient (CLI) | payer MEDICARE, OTHER, SELFPAY ==
--- NOTE | 2022-08-15 13:46 | VDLE_ITS ---
Reason For Study: S/P DVT RIGHT GSV is normal. CFV is compressible, spontaneous, phasic, competent and demonstrates normal augmentation. FV is compressible, spontaneous, phasic, competent and demonstrates normal augmentation. POP V is compressible, spontaneous, phasic, competent and demonstrates normal augmentation. PTV is compressible. RT PerV is compressible. POP V is now compressible. T/P Trunk is partially compressible. Improvement from previous study done 07/06/2022. Procedure This is a venous duplex using B-mode, color flow and spectral Doppler. Exam performed in department. The exam was abbreviated due to the COVID 19 protocol. The exam was diagnostic. A preliminary report was called and/or faxed to Sherine at Dr. Almanza's office. VL/Venous Duplex US, Unilateral Interpretation Summary Chronic venous changes are noted in the right tibio-peroneal trunk. The remaind er of the right lower extremity deep venous system is patent and compressible. Valvular competence ap pears intact within the proximal deep venous system on the right . The right great saphenous vein a ppears patent and compressible segmentally. Ordering Physician: Satnam Almanza Performed By: Agapito Clemons RVT
== END | disposition home or self-care (01) ==
LOC: CVS 13:44
PROVIDERS: PCP Family Medicine; Referring Provider Family Medicine; Visit Provider Family Medicine
DX: Z86.718 Personal history of other venous thrombosis and embolism (principal)
CPT/HCPCS: 93971